=== PATIENT | male | born 1980 | race American Indian/Alaskan Native ===

== ENCOUNTER 2018-10-17 04:36 | Emergency (ER) | payer SELFPAY ==
[2018-10-17 04:45] VITALS: BP 127/72
[2018-10-17] MEDS ORDERED: PERCOCET 5/325 ONE (05:12)
[2018-10-17] MEDS ORDERED: PERCOCET 5/325 PO ONE (05:25)
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
== END 2018-10-17 06:21 | disposition home or self-care (01) ==
LOC: ED 04:36
DX: S40.812A Abrasion of left upper arm, initial encounter (principal); F17.200 Nicotine dependence, unspecified, uncomplicated; W22.8XXA Striking against or struck by other objects, initial encounter; Y93.89 Activity, other specified; Y92.89 Other specified places as the place of occurrence of the external cause; Y99.8 Other external cause status